=== PATIENT | male | born 1975 | race Caucasian/White ===

== ENCOUNTER 2017-08-27 10:01 | Emergency (ER) | payer MEDICAID, SELFPAY ==
[2017-08-27 10:02] VITALS: BP 154/103; PULSE 83; RESP 16; TEMP 36.5; O2SAT 96; BMI 27.8
--- NOTE | 2017-08-27 10:19 | ED.VISSUMM ---
- ER Visit Summary Date of Service: 08/27/17 Chief Complaint: Rash History of Present Illness: The patient is a 42 M who states that less than 48 hours ago he began to have a itchy red rash on his anterior shoulder. He states he is concerned about shingles. Physical Examination: Afebrile vital signs are stable There is a rash in the anterior shoulder that is a red base raised with central clear blisters. There are approximately 7 of these in close proximity. Emergency Department Course and Treatment: Patient will be placed on acyclovir and prednisone. Follow-up as needed return if worsening. Impression: 1. Shingles This note was generated with [employer] dictation software. It may contain incorrect words, spelling, and punctuation that were not noted in review of the chart prior to signing ED Disposition - Plan for ED Patient: Disposition: Home or Assisted Living Chief Complaint: Rash Instructions: ED Shingles Prescriptions: Acyclovir 800 mg PO 5X/DAY #35 tab Prednisone [Deltasone] 60 mg PO DAILY #15 tab Referrals: Care Physician,No Primary [Primary Care Provider] - Additional Instructions: Follow-up with your doctor as needed
--- NOTE | 2017-08-27 10:22 | ED.DCSUM_ITS ---
- ER Visit Summary Date of Service: 08/27/17 Chief Complaint: Rash History of Present Illness: The patient is a 42 M who states that less than 48 hours ago he began to have a itchy red rash on his anterior shoulder. He states he is concerned about shingles. Physical Examination: Afebrile vital signs are stable There is a rash in the anterior shoulder that is a red base raised with central clear blisters. There are approximately 7 of these in close proximity. Emergency Department Course and Treatment: Patient will be placed on acyclovir and prednisone. Follow-up as needed return if worsening. Impression: 1. Shingles This note was generated with [employer] dictation software. It may contain incorrect words, spelling, and punctuation that were not noted in review of the chart prior to signing ED Disposition - Plan for ED Patient: Disposition: Home or Assisted Living Chief Complaint: Rash Instructions: ED Shingles Prescriptions: Acyclovir 800 mg PO 5X/DAY #35 tab Prednisone [Deltasone] 60 mg PO DAILY #15 tab Referrals: Care Physician,No Primary [Primary Care Provider] - Additional Instructions: Follow-up with your doctor as needed
[2017-08-27 10:30] VITALS: BP 134/94; PULSE 67
== END 2017-08-27 10:45 | disposition home or self-care (01) ==
PROVIDERS: Emergency Provider Emergency Medicine; Family Provider Family Medicine; PCP Family Medicine
DX: B02.9 Zoster without complications (principal)
CPT/HCPCS: 99282

== ENCOUNTER 2018-08-12 12:38 | Emergency (ER) | payer MEDICAID, SELFPAY ==
[2018-08-12 12:38] VITALS: BP 138/92; PULSE 69; RESP 17; TEMP 37.1; O2SAT 96; BMI 27.6
--- NOTE | 2018-08-12 13:26 | CT_ITS ---
STUDY: CT ABDOMEN AND PELVIS WITH CONTRAST REASON FOR EXAM: Male, 43 years old. Diffuse abdominal pain with rectal bleeding RADIATION DOSAGE (If Supplied By Facility): CTDIvol = ( 16.47 ) mGy, DLP = ( 1275.89 ) mGycm TECHNIQUE: Transaxial images were obtained from the dome of the diaphragm to the symphysis pubis with oral contrast. 100 mL Isovue-300 was administered. Sagittal and coronal images were reconstructed. Individualized dose optimization techniques were used for this CT. COMPARISON: None. FINDINGS: The visualized lung bases are unremarkable. The visualized portions of the heart are within normal limits. Normal liver. There are surgical clips in the gallbladder fossa/upper abdomen consistent with a prior cholecystectomy. Normal spleen. Normal pancreas. Normal bilateral adrenal glands. Normal right kidney. Normal left kidney. Normal visualized stomach. Normal small intestine. There are multiple colonic diverticula consistent with diverticulosis. The appendix is visualized and appears normal. Normal abdominal aorta. Normal inferior vena cava. Normal retroperitoneum. Normal urinary bladder. There is a right-sided inguinal hernia containing adipose tissue. Normal osseous structures. CT/Abdomen/Pelvis WITH Contrast IMPRESSION: 1. No acute inflammatory process or bowel obstruction. 2. Cholecystectomy. 3. Small right inguinal fat-containing hernia. 4. Diverticulosis without diverticulitis. Electronically Signed: Phi He MD at 15:27 EST , Service support ,
[2018-08-12 14:09] LABS: Absolute Lymphocyte Count 1.79 X10^3/ul (0.83-4.51); Absolute Neutrophil Count 1.9 X10^3/uL (2.0-7.7); Basophil# 0.03 X10^3/uL; Basophil% 0.7 % (0-1); Eosinophils% 2.3 % (0-5); Hematocrit 40.3 % (40-54); Lymphocyte # 1.79 X10^3/ul (4.0); Lymphocyte % 41.1 % (19-41); Mean Corp Hgb Conc 34.7 g/gl (32-36); Mean Corpuscular Hgb 31.3 pg (27.0-32.0); Mean Corpuscular Volume 90.2 fL (80-94); Mean Platelet Vol. 12.2 fl (6.2-12.0); Monocyte# 0.49 X10^3/uL; Monocyte% 11.3 % (0-10); Neutrophil # 1.94 X10^3/uL (2.7-7.7); Neutrophil % 44.6 % (47-70); POSITIVE COUNT NO; POSITIVE DIFFERENTIAL NO; POSITIVE MORPHOLOGY NO; Platelet Count 189 K/mm3 (150-450); RBC Distribution Width CV 12.4 % (11.6-14.6); RBC Distribution Width SD 40.2 fl (35.1-43.9); Red Blood Count 4.47 M/mm3 (4.6-6.2); White Blood Count 4.4 K/mm3 (4.4-11.0)
[2018-08-12 14:18] LABS: AST(SGOT) 35 U/L (15-37); Alanine Aminotransfer ALT/SGPT 46 U/L (16-61); Albumin, Serum 3.8 g/dL (3.2-5.0); Alkaline Phosphatase 33 U/L (45-117); Anion Gap 7 (5-15); BUN 13 mg/dL (7-18); BUN/Creat Ratio 10.5 RATIO (10-20); Calcium,Total 8.5 mg/dL (8.5-10.1); Chloride 109 mmol/L (98-107); Creatinine, Serum 1.24 mg/dL (0.70-1.30); EST Glomerular Filtration Rate 68 mL/min (>60); Est Glom Filt Rate - Afr Amer 82 mL/min (>60); Estimated Creatinine Clearance 96.25 ml/min; Globulin 3.7 g/dL (2.2-4.2); Glucose 94 mg/dL (74-106); Lipase 150 U/L (73-393); Potassium 4.1 mmol/L (3.5-5.1); Protein, Total 7.5 g/dL (6.4-8.2); Sodium Level 138 mmol/L (136-145)
[2018-08-12 15:27] VITALS: BP 134/92; PULSE 66; RESP 16; O2SAT 95
--- NOTE | 2018-08-12 15:42 | ED.VISSUMM ---
- ER Visit Summary Date of Service: 08/12/18 Chief Complaint: Rectal bleeding History of Present Illness: The patient is a 43 M who states that yesterday he had 2 bowel movements each 1 had bright red blood on the toilet paper and around the brown stool. He states the stool was formed. Today he had blood only on the toilet paper, and formed brown stool, and some abdominal discomfort that he did not know about until his doctor pushed on the middle aspect of his abdomen. He tells me that his doctor did a rectal exam and there is bright red blood on the glove. He was advised to come to the emergency department. This is never happened to him before. He states that a lot of times he does have diarrhea. He has not had any syncope. He is never had colonoscopy. Physical Examination: Afebrile vital signs are stable Gen: Well-nourished well-developed Head: Normocephalic atraumatic Eyes: Perrl EOMI ENT: TMs clear no rhinorrhea moist mucous membranes Neck: Supple no lymphadenopathy no JVD nontender CVS: Regular rate rhythm no murmurs normal S1-S2 Respiratory: No distress clear to auscultation bilaterally chest nontender Abdomen: Soft nontender nondistended normal bowel sounds no masses : Rectal deferred as already performed by primary care physician and was documented Back: Nontender Extremity: Nontender no edema Skin: Normal color no rash Neuro: alert orientated ?3 CN II-XII intact normal strength sensation reflexes gait cerebellar Psych: Normal affect normal mood Test Results: White count is normal hemoglobin stable. CMP normal. CT down pelvis demonstrated no colitis or active diverticulitis. There was some diverticular changes. Emergency Department Course and Treatment: Patient's hemoglobin is stable. He is hemodynamically stable. He has had no further bleeding here in the department. At this point is most likely either a diverticular bleed AVM or internal hemorrhoids. He was advised to follow-up with his primary care physician early next week. He is to return if his bleeding worsens. He will need a colonoscopy. Impression: 1. Stable lower GI bleed This note was generated with [employer] dictation software. It may contain incorrect words, spelling, and punctuation that were not noted in review of the chart prior to signing ED Disposition - Plan for ED Patient: Disposition: Home or Assisted Living Instructions: When You Have Gastrointestinal (GI) Bleeding Referrals: Myles Storm MD [Primary Care Provider] - (call on tuesday to arrange follow up) Additional Instructions: If bleeding becomes worse please return to the emergency department. He will need to get a colonoscopy.
[2018-08-12 16:00] VITALS: BP 128/89; PULSE 62; RESP 16; O2SAT 99
== END 2018-08-12 16:01 | disposition home or self-care (01) ==
PROVIDERS: Emergency Provider Emergency Medicine; Family Provider Family Medicine; PCP Family Medicine
DX: K62.5 Hemorrhage of anus and rectum (principal)
CPT/HCPCS: 74177; 80053; 83690; 85025; 99285; Q9967; A4216

== ENCOUNTER 2019-07-04 19:39 | Emergency (ER) | payer MEDICAID, SELFPAY ==
[2019-07-04 19:40] VITALS: BP 151/88; PULSE 90; RESP 18; TEMP 36.7; O2SAT 96; BMI 30.2
--- NOTE | 2019-07-04 21:37 | ED.VISSUMM ---
- ER Visit Summary Date of Service: 07/04/19 Chief Complaint: Dental pain History of Present Illness: The patient is a 44 M who presents with right upper dental pain that is been getting worse over the past week. Patient states his dentist recently started him on clindamycin and told him to take 600 mg of ibuprofen and 375 mg of Tylenol. Patient states he has been taking this with minimal relief. Patient states he has an appoint with his dentist tomorrow. Patient denies any difficulty breathing or difficulty swallowing. Patient denies any fevers or chills. Patient describes his pain is sharp. Patient states the pain is over the right upper molars. Patient admits to some swelling of his jaw and face. Patient admits to a right-sided headache as well. Physical Examination: Vital signs are stable. Patient is afebrile. Patient is in no acute distress. Oral mucosa is pink and moist. There are multiple dental caries in almost every tooth. There is some gingival edema over the right upper molars. Neck is supple. Trachea is midline. There is no JVD. Heart was regular rate and rhythm. Lungs are clear and equal bilaterally. Abdomen is soft. Bowel sounds are normal. There is no tenderness. Cranial nerves II through XII are intact. There are no focal motor or sensory deficits. Emergency Department Course and Treatment: Patient was given a dose of [place] here. Patient was instructed to continue his antibiotic as prescribed. Patient was instructed to follow-up with his dentist tomorrow as scheduled. Patient understood and was agreeable with the plan. All questions were answered. Disposition: Discharge home Impression: Infected dental caries This note was generated with [employer]estone dictation software. It may contain incorrect words, spelling, and punctuation that were not noted in review of the chart prior to signing ED Disposition - Plan for ED Patient: Disposition: Home or Assisted Living Diagnosis: Infected dental caries Instructions: Dental Cavity Referrals: Myles Storm MD [Primary Care Provider] - Dentist,Your [STAFF PHYSICIAN] - Keep Irma appointment
[2019-07-04] MEDS: HYDROcodone Bitartrate/Apap 5/325 Tablet PO (22:00)
== END 2019-07-04 22:02 | disposition home or self-care (01) ==
PROVIDERS: Emergency Provider Emergency Medicine; PCP Family Medicine
DX: K04.7 Periapical abscess without sinus (principal); K02.9 Dental caries, unspecified; R51 Headache
CPT/HCPCS: 99283

== ENCOUNTER 2021-09-30 20:43 | Emergency (ER) | payer MEDICAID, SELFPAY ==
[2021-09-30 20:44] VITALS: BP 139/103; PULSE 84; RESP 15; TEMP 36.5; O2SAT 98; BMI 27.8
--- NOTE | 2021-09-30 20:57 | CT_ITS ---
STUDY: CT ABDOMEN AND PELVIS WITHOUT CONTRAST REASON FOR EXAM: Male, 46 years old. Kidney Stone RADIATION DOSAGE (If Supplied By Facility): CTDIvol = ( 14.74 ) mGy, DLP = ( 828.88 ) mGycm TECHNIQUE: Transaxial images were obtained from the dome of the diaphragm to the symphysis pubis without oral contrast, and without intravenous contrast. Sagittal and coronal images were reconstructed. Individualized dose optimization techniques were used for this CT. COMPARISON: CT abdomen pelvis 08/12/2018. FINDINGS: LOWER CHEST: Small bilateral pleural effusions. LIVER: Fatty infiltration. GALLBLADDER AND BILIARY TREE: Gallbladder surgically absent. PANCREAS: Grossly unremarkable. SPLEEN: Grossly unremarkable. ADRENAL GLANDS: Grossly unremarkable. KIDNEYS AND URETERS: No calculi demonstrated. No hydronephrosis. PERITONEUM: No free air. No free fluid. BOWEL: Scattered diverticula in the colon. No bowel obstruction. APPENDIX: Visualized and unremarkable. No evidence of acute appendicitis. VESSELS/RETROPERITONEUM: Abdominal aorta is normal caliber. A few prominent retroperitoneal lymph nodes largest node aortocaval measures 1.8 x 1.2 cm is not significantly changed, with smaller adjacent nodule is slightly larger. REPRODUCTIVE ORGANS: Grossly unremarkable URINARY BLADDER: Minimally distended. Prominent wall. ABDOMINAL WALL: Small bilateral inguinal hernias containing only fat, no bowel. BONES: No acute abnormalities. CT/Abdomen/Pelvis without Cont IMPRESSION: Prominent urinary bladder wall likely nondistention, correlate for cystitis. No urolithiasis or hydronephrosis. Colonic diverticulosis without evidence of acute diverticulitis. Small bilateral pleural effusions. No infiltrates. Retroperitoneal adenopathy of uncertain etiology slightly increased compared to prior CT. Consider follow-up imaging CT 2-3 months to ensure stability. Electronically Signed: Marivel Nye MD at 22:32 EDT ,
--- NOTE | 2021-09-30 21:01 | EX.ED.DYSGE1 ---
HPI History of Present Illness Chief Complaint: Abd Pain Informant: patient Narrative Narrative: Waxing waning right flank pain for the past 3 days. Symptoms worsen with movement. Denies injuries or any heavy lifting prior. Denies radicular symptoms. No nausea or vomiting. No diarrhea. No urinary symptoms. Has not taken any medications. States he played basketball yesterday to try to get his mind off of it. Today symptoms worsen. Denies history of gastric ulcers or kidney injury. Denies fevers. Denies rash. History of cholecystectomy in 2004. States 2006 had a collapsed lung with a chest tube. Denies dyspnea. Denies any pain down the legs. Prior similar symptoms: No PFSH PFSH Home Medications acetaminophen 500 mg PO Q4H PRN PRN 07/04/19 [History Last Taken Unknown] ibuprofen 600 mg PO 4X/DAY PRN #20 tab 09/30/21 [Rx Last Taken Unknown] Allergy/AdvReac Type Severity Reaction Status Date / Time Penicillins Allergy Rash Verified 09/30/21 20:47 Social History Smoking Status: Never smoker ROS ROS ED Constitutional Constitutional ED: Denies chills, fever(s) or sweats Eyes Eyes: Denies change in vision ENT ENT ED: Denies dysphagia or sore throat Cardiovascular Cardiovascular: Denies chest pain, leg edema, palpitations or racing heartbeat Respiratory/Chest Respiratory/Chest: Denies cough, dyspnea or dyspnea on exertion Gastrointestinal Gastrointestinal: Denies abdominal pain, diarrhea, nausea or vomiting Genitourinary Genitourinary ED: Denies dysuria, hematuria or urinary frequency Musculoskeletal Musculoskeletal: Reports back pain; Denies extremity pain or neck pain Integumentary Denies rash or wounds Neurologic Neurologic: Denies headache(s), paresthesias or weakness EXAM Physical Exam Const Vital Signs: 09/30/21 20:44 09/30/21 23:08 Temperature 97.7 F L Temperature Source Temporal Pulse Rate 84 59 L Respiratory Rate 15 18 Blood Pressure 139/103 H 143/101 H Blood Pressure Mean 115 Pulse Ox 98 98 Oxygen Delivery Method Room Air Positive well nourished and well developed General Appearance ED: well developed and NAD HEENT Reports moist mucous membranes normocephalic and atraumatic Eyes PERRL, EOMs intact bilaterally and conjunctivae normal General Eye ED: Yes normal appearance of both eyes Neck no lymphadenopathy and supple General: Negative for tenderness Chest Wall Chest: Negative for tenderness Resp normal respiratory effort and normal air movement Effort and Inspection: symmetric chest movement; Negative for respiratory distress Cardio regular rate, regular rhythm and no murmurs Peripheral Pulses: pulses 2+ throughout GI normal to inspection, nondistended, normoactive bowel sounds and non-tender Palpation: Negative for guarding or rebound tenderness present Back/Spine no CVA tenderness and no thoracic nor lumbar tenderness Back/Spine Narrative: No rash on the back. Extremity normal to inspection General Extremety ED: Negative for edema or tenderness General Extremity: Negative for edema Neuro oriented x3 and no sensory deficits noted Sensorium / Orientation: awake and alert Skin no rashes or lesions noted and no wounds MDM MDM MDM Narrative Medical decision making narrative: Patient nontraumatic flank pain worse with movement. States persistent. He denies trauma. Renal stone protocol initiated labs are stable urine negative CT scan shows no acute process. Decompressed bladder. He was agreeable to Toradol in the ED is given a reevaluation symptoms were improving. We will continue NSAIDs. He will monitor for any rashes for concerns of shingles. He will follow-up with his PCP. All questions were answered. Lab Data Attestation: I reviewed the patient's lab results. Labs: Laboratory Results - last 24 hr 09/30/21 09/30/21 09/30/21 20:55 20:55 21:15 WBC 6.3 RBC 4.80 Hgb 15.4 Hct 42.4 MCV 88.3 MCH 32.1 H MCHC 36.3 H RDW Std Deviation 38.6 RDW Coeff of Roseanne 11.9 Plt Count 183 MPV 12.1 H Immature Gran % (Auto) 0.200 Neut % (Auto) 53.2 Lymph % (Auto) 34.4 Lee % (Auto) 8.7 Eos % (Auto) 3.0 Baso % (Auto) 0.5 Absolute Neuts (auto) 3.4 Absolute Lymphs (auto) 2.18 Nucleated RBC % 0 Sodium 135 L Potassium 3.9 Chloride 102 Carbon Dioxide 25.0 Anion Gap 8 BUN 8 Creatinine 1.08 Estim Creat Clear Calc 101.48 Est GFR (MDRD) Af Amer 95 Est GFR (MDRD) Non-Af 79 BUN/Creatinine Ratio 7.4 L Glucose 99 Calcium 8.9 Urine Color Yellow Urine Clarity Clear Urine pH 6.5 Ur Specific [place] 1.005 Urine Protein Negative Urine Glucose (UA) Normal Urine Ketones Negative Urine Occult Blood Negative Urine Nitrite Negative Urine Bilirubin Negative Urine Urobilinogen Normal Ur Leukocyte Esterase Negative Urine RBC 0 SEEN Urine WBC 0 SEEN Ur Squamous Epith Cells 0 SEEN Urine Bacteria 0 SEEN Urine Mucus 0 SEEN Radiography Diagnostic Testing: Clinical Impression(s) from Imaging Studies Abdomen/Pelvis CT 09/30/21 20:57 IMPRESSION: Prominent urinary bladder wall likely nondistention, correlate for cystitis. No urolithiasis or hydronephrosis. Colonic diverticulosis without evidence of acute diverticulitis. Small bilateral pleural effusions. No infiltrates. Retroperitoneal adenopathy of uncertain etiology slightly increased compared to prior CT. Consider follow-up imaging CT 2-3 months to ensure stability. Electronically Signed: Marivel Nye MD at 22:32 EDT Reading Location ID and State: [address] [place] [address] Tel , Service support , Discharge Plan Triage Chief Complaint: Abd Pain ED Provider: Vladimir Barrientos Dx/Rx/DC Orders Clinical Impression: Right flank pain, Acute lumbar myofascial strain Instructions: ED Back Sprain/Strain, ED Flank Pain, Uncertain Cause Prescriptions: New ibuprofen 600 MG tablet 600 mg PO 4X/DAY PRN (Reason: Pain Or Fever) Qty: 20 RF: 0 Discontinued ibuprofen 200 MG tablet 600 mg PO Q6H PRN (Reason: Pain Or Fever) RF: 0 No Action acetaminophen 500 MG tablet 500 mg PO Q4H PRN PRN (Reason: Pain Or Fever) RF: 0 Primary Care Provider: Myles Storm Referrals: Myles Storm MD [Primary Care Provider] - 3-5 Days if not improving Activity Restrictions/Additional Instructions: Flank CT negative for any acute process labs and urine is normal. Take ibuprofen as prescribed. Monitor for any rashes. Follow-up with your doctor for reevaluation. Disposition Disposition: Home, Self Care Discharge Date/Time: 09/30/21 23:13
[2021-09-30] MEDS: Ketorolac 15 MG/ML Vial IV (21:03)
[2021-09-30] MEDS: 0.9% Normal Saline 1,000 ML 250 ML IV (21:06)
[2021-09-30 21:10] LABS: Absolute Lymphocyte Count 2.18 X10^3/uL (0.83-4.51); Absolute Neutrophil Count 3.4 X10^3/uL (2.0-7.7); Basophil# 0.03 X10^3/uL; Basophil% 0.5 % (0-1); Eosinophil# 0.19 X10^3/uL; Hematocrit 42.4 % (40-54); Hemoglobin 15.4 g/dL (13.0-16.5); Lymphocyte # 2.18 X10^3/ul (0.83-4.51); Lymphocyte % 34.4 % (19-41); Mean Corp Hgb Conc 36.3 g/dL (32-36); Mean Corpuscular Hgb 32.1 pg (27.0-32.0); Mean Corpuscular Volume 88.3 fL (80-94); Mean Platelet Vol. 12.1 fl (6.2-12.0); Monocyte# 0.55 X10^3/uL; Monocyte% 8.7 % (0-10); NRBC Flagged by Analyzer 0 % (0-5); Neutrophil # 3.38 X10^3/uL (2.7-7.7); Neutrophil % 53.2 % (47-70); Platelet Count 183 K/mm3 (150-450); RBC Distribution Width CV 11.9 % (11.6-14.6); RBC Distribution Width SD 38.6 fl (35.1-43.9); White Blood Count 6.3 K/mm3 (4.4-11.0)
[2021-09-30 21:24] LABS: Bacteria 0 SEEN /hpf (None Seen); Mucous, Urine 0 SEEN /hpf (<or=2+); Red Blood Cells-Urine 0 SEEN /hpf (0-5); Squamous Epithelial Cells - UA 0 SEEN /hpf (0-5); White Blood Cells 0 SEEN /hpf (0-5)
[2021-09-30 21:25] LABS: Anion Gap 8 (5-15); BUN 8 mg/dL (7-18); BUN/Creat Ratio 7.4 RATIO (10-20); Calcium,Total 8.9 mg/dL (8.5-10.1); Chloride 102 mmol/L (98-107); Creatinine, Serum 1.08 mg/dL (0.70-1.30); EST Glomerular Filtration Rate 79 mL/min (>60); Est Glom Filt Rate - Afr Amer 95 mL/min (>60); Estimated Creatinine Clearance 101.48 ml/min; Glucose 99 mg/dL (74-106); Potassium 3.9 mmol/L (3.5-5.1); Sodium Level 135 mmol/L (136-145)
[2021-09-30 22:09] LABS: Color, Urine Yellow (Yellow); Glucose, Dipstick Normal (Normal); Ketone-Dipstick Negative (Negative); Leukocyte Esterase-Dipstick Negative /ul (Negative); Nitrite-Dipstick Negative (Negative); Occult Blood-Urine Negative /ul (Negative); Protein-Dipstick Negative (Negative); Specific Gravity, Urine 1.005 (1.002-1.030); Urine Bilirubin Dipstick Negative (Negative); Urine Clarity Clear (Clear); Urine Urobilinogen Normal (Normal); Urine pH 6.5 (5.0 - 8.0)
[2021-09-30 23:08] VITALS: BP 143/101; PULSE 59; RESP 18; O2SAT 98
--- NOTE | 2021-09-30 23:11 | NURSING ---
reviewed discharge instructions with pt and family member. instructed pt to wait 6 hours to take ibuprofen do to receiving Toradol in ED. pt stated understanding.
== END 2021-09-30 23:13 | disposition home or self-care (01) ==
PROVIDERS: Emergency Provider Emergency Medicine; PCP Family Medicine; Visit Provider Emergency Medicine
DX: S39.012A Strain of muscle, fascia and tendon of lower back, initial encounter (principal); R10.9 Unspecified abdominal pain; X58.XXXA Exposure to other specified factors, initial encounter
CPT/HCPCS: 74176; 80048; 81001; 85025; 96374; 99283; J7030; A4216

== ENCOUNTER 2023-05-31 18:37 | Emergency (ER) | payer MEDICAID, SELFPAY ==
[2023-05-31 18:40] VITALS: BP 133/99; PULSE 76; RESP 18; TEMP 36.9; O2SAT 96; BMI 27.7
--- NOTE | 2023-05-31 18:58 | EX.ED.DYSGE1 ---
HPI <TAJ Rodriguez - Last Filed: 05/31/23 20:20> History of Present Illness Chief Complaint: Abd Pain Narrative Narrative: Patient is a 48-year-old male with no significant medical history presents to the emergency department with complaints of rectal bleeding, lower abdominal pain. Patient dates he started having lower abdominal pain today, he had 1 bowel movement that he states was bloody, with bright red blood in the toilet paper. He has had 2 colonoscopies in the past with no abnormalities. He denies using a lot of NSAIDs recently, [place] any fever or chills. Patient dates it feels full in his lower abdomen. He sent a picture to his physician and his physician told him to come to the emergency department. Patient denies any chest pain, dizziness, nausea or vomiting. PFSH <TAJ Rodriguez - Last Filed: 05/31/23 20:20> PFSH Home Medications acetaminophen 500 mg tablet 500 mg PO Q4H PRN PRN Pain Or Fever 07/04/19 [History Last Taken Unknown] ibuprofen 600 mg tablet 600 mg PO 4X/DAY PRN Pain Or Fever #20 tabs 09/30/21 [Rx Last Taken Unknown] cefdinir 300 mg capsule 300 mg PO BID #20 caps 05/31/23 [Rx Last Taken Unknown] colestipol 1 gram tablet 1 g PO BID 05/31/23 [History Last Taken Unknown] cyclobenzaprine 10 mg tablet 10 mg PO TID PRN 05/31/23 [History Last Taken Unknown] metronidazole 500 mg tablet 500 mg PO TID #30 tabs 05/31/23 [Rx Last Taken Unknown] Allergy/AdvReac Type Severity Reaction Status Date / Time Penicillins Allergy Rash Verified 05/31/23 18:40 Social History Smoking Status: Never smoker ROS <TAJ Rodriguez - Last Filed: 05/31/23 20:20> ROS ED ROS Narrative Constitutional: Negative for fever, chills, weight loss, weakness Eyes: Negative for vision loss, vision change, double vision ENT: Negative for any sore throat, ear pain, congestion Cardiovascular: Negative for any chest pain, tightness, palpitations Respiratory: Negative for any cough, sputum production, hemoptysis, dyspnea, dyspnea on exertion, orthopnea Gastrointestinal: Negative for any nausea, vomiting, diarrhea, constipation, blood in vomit. Positive for blood in stool, abdominal pain : Negative for any urinary frequency, dysuria, retention, blood in urine Muscle skeletal: Negative for any myalgias, arthralgias, neck pain, back pain Neurological: Negative for any headache, syncope, paresthesias, dizziness Skin: Negative for any rashes, lumps, itching, abrasions, lacerations Psychiatric: Negative for any depression, anxiety, stress, suicidal ideation, homicidal ideation Hematologic: Negative for any easy bruising, excessive bruising, easy bleeding Allergies: Negative for any eczema, hives, rash EXAM <TAJ Rodriguez - Last Filed: 05/31/23 20:20> Physical Exam Narrative Exam Narrative: Vital signs reviewed. HEET: Head normocephalic atraumatic, TMs clear bilaterally. Posterior pharynx is clear, moist mucous membranes. Nares clear bilaterally. Neck: Supple with no lymphadenopathy or tenderness. No signs of meningismus. Cardiac: Regular rate and rhythm no murmurs gallops or rubs, equal peripheral pulses bilaterally. Respiratory: Lungs clear to auscultation bilaterally. No chest tenderness. Abdomen: Soft, , nondistended. No abdominal bruit or pulsatile masses. No hepatosplenomegaly. Tenderness to the lower abdomen, right and left. No peritoneal signs Extremities: No peripheral edema, no signs of gross trauma or deformity. Active full range of motion of all extremities. Neuro: Cranial nerves II through XII intact, no focal neurological deficits. Skin: Clean dry and intact with no rash, purpura, petechiae, vesicles or pustules. Backs/flank: No CVA tenderness, no midline spinal tenderness, no deformity. Psych: Normal mood and affect. No SI, HI or acute psychosis. Rectal: Rectal exam was completed, with female nurse materials planner/production planner Radha. There was some darker blood around the anus however there is no external hemorrhoid, there is no mass. Minimal stool in rectal vault. Const Vital Signs: 05/31/23 18:40 05/31/23 20:53 Temperature 98.5 F Temperature Source Temporal Pulse Rate 76 74 Respiratory Rate 18 16 Blood Pressure 133/99 H 132/71 H Blood Pressure Mean 110 91 Pulse Ox 96 97 Oxygen Delivery Method Room Air Positive well nourished and well developed General Appearance ED: well developed <Dr. Vladimir Barrientos DO - Last Filed: 05/31/23 22:15> Physical Exam Const Vital Signs: 05/31/23 18:40 05/31/23 20:53 Temperature 98.5 F Temperature Source Temporal Pulse Rate 76 74 Respiratory Rate 18 16 Blood Pressure 133/99 H 132/71 H Blood Pressure Mean 110 91 Pulse Ox 96 97 Oxygen Delivery Method Room Air MDM <TAJ Rodriguez - Last Filed: 05/31/23 20:20> MDM Lab Data Labs: Laboratory Results - last 24 hr 05/31/23 19:19 WBC 5.9 RBC 4.79 Hgb 15.2 Hct 44.0 MCV 91.9 MCH 31.7 MCHC 34.5 RDW Std Deviation 43.8 RDW Coeff of Roseanne 13.2 Plt Count 214 MPV 10.8 Immature Gran % (Auto) 0.200 Neut % (Auto) 48.5 Lymph % (Auto) 37.3 Maury % (Auto) 10.8 H Eos % (Auto) 2.2 Baso % (Auto) 1.0 Absolute Neuts (auto) 2.9 Absolute Lymphs (auto) 2.21 Nucleated RBC % 0 Sodium 138 Potassium 3.7 Chloride 106 Carbon Dioxide 28.0 Anion Gap 4 L BUN 8 Creatinine 1.08 Estim Creat Clear Calc 99.37 Est GFR (MDRD) Af Amer 95 Est GFR (MDRD) Non-Af 78 BUN/Creatinine Ratio 7.4 L Glucose 96 Calcium 9.3 Total Bilirubin 1.50 H AST 16 ALT 24 Alkaline Phosphatase 67 Total Protein 8.0 Albumin 3.6 Globulin 4.4 H Albumin/Globulin Ratio 0.8 L Lipase 36 Radiography Diagnostic Testing: Clinical Impression(s) from Imaging Studies Abdomen/Pelvis CT 05/31/23 19:31 IMPRESSION: Findings consistent with distal colitis. No acute appendicitis or bowel obstruction. Status post cholecystectomy, otherwise unremarkable abdominal viscera. Electronically Signed: Shae Tamez MD at 20:02 EST , Treatment and Re-Evaluation :: Patient appears generally well, patient appears nontoxic, vital signs are stable. Presenting to the emerged part with lower abdominal pain, blood in stool. Patient differential diagnosis includes diverticulitis, colitis, lower GI bleed. Patient will receive a full abdominal workup including CBC to ensure there is no anemia, leukocytosis. Patient will receive a BMP to check for any Orchard abnormalities, I will send a stool occult. Patient received a CT scan of the abdomen pelvis. All radiologic examinations were read, reviewed by the emergency department attending. From these reads, a plan of care will be put in place. Patient's CBC was unremarkable, chemistries were unremarkable. Lipase was negative. Patient's stool occult was positive. Patient CT scan of the abdomen pelvis shows that the findings were consistent with distal colitis. No acute appendicitis or bowel obstruction. This unexplained the patient's symptoms while some blood in stool. At this time, patient be placed on cefdinir secondary to his allergy to penicillin, he will also be placed on Flagyl. He does not drink alcohol. Patient was instructed to follow-up with his GI specialist, he is instructed return for any worsening symptoms. All questions answered, stable for discharge. <Dr. Vladimir Barrientos, DO - Last Filed: 05/31/23 22:15> [facility] Lab Data Attestation: I reviewed the patient's lab results. Labs: Laboratory Results - last 24 hr 05/31/23 19:19 WBC 5.9 RBC 4.79 Hgb 15.2 Hct 44.0 MCV 91.9 MCH 31.7 MCHC 34.5 RDW Std Deviation 43.8 RDW Coeff of Roseanne 13.2 Plt Count 214 MPV 10.8 Immature Gran % (Auto) 0.200 Neut % (Auto) 48.5 Lymph % (Auto) 37.3 Maury % (Auto) 10.8 H Eos % (Auto) 2.2 Baso % (Auto) 1.0 Absolute Neuts (auto) 2.9 Absolute Lymphs (auto) 2.21 Nucleated RBC % 0 Sodium 138 Potassium 3.7 Chloride 106 Carbon Dioxide 28.0 Anion Gap 4 L BUN 8 Creatinine 1.08 Estim Creat Clear Calc 99.37 Est GFR (MDRD) Af Amer 95 Est GFR (MDRD) Non-Af 78 BUN/Creatinine Ratio 7.4 L Glucose 96 Calcium 9.3 Total Bilirubin 1.50 H AST 16 ALT 24 Alkaline Phosphatase 67 Total Protein 8.0 Albumin 3.6 Globulin 4.4 H Albumin/Globulin Ratio 0.8 L Lipase 36 Radiography Diagnostic Testing: Clinical Impression(s) from Imaging Studies Abdomen/Pelvis CT 05/31/23 19:31 IMPRESSION: Findings consistent with distal colitis. No acute appendicitis or bowel obstruction. Status post cholecystectomy, otherwise unremarkable abdominal viscera. Electronically Signed: Shae Tamez MD at 20:02 EST , Treatment and Re-Evaluation :: Patient appears generally well, patient appears nontoxic, vital signs are stable. Presenting to the emerged part with lower abdominal pain, blood in stool. Patient differential diagnosis includes diverticulitis, colitis, lower GI bleed. Patient will receive a full abdominal workup including CBC to ensure there is no anemia, leukocytosis. Patient will receive a BMP to check for any Orchard abnormalities, I will send a stool occult. Patient received a CT scan of the abdomen pelvis. All radiologic examinations were read, reviewed by the emergency department attending. From these reads, a plan of care will be put in place. Patient's CBC was unremarkable, chemistries were unremarkable. Lipase was negative. Patient's stool occult was positive. Patient CT scan of the abdomen pelvis shows that the findings were consistent with distal colitis. No acute appendicitis or bowel obstruction. This unexplained the patient's symptoms while some blood in stool. At this time, patient be placed on cefdinir secondary to his allergy to penicillin, he will also be placed on Flagyl. He does not drink alcohol. Patient was instructed to follow-up with his GI specialist, he is instructed return for any worsening symptoms. All questions answered, stable for discharge. Attending note: Patient seen and evaluated with products mechanical design engineer. I perform my own [id number] evaluation. I agree with the plan of work-up. Patient presenting pain lower abdomen starting this afternoon. No fevers or chills. No vomiting or diarrhea. Exam minimal tenderness deep palpation left lower quadrant there is no guarding or rebound. Nontoxic. Workup labs normal abdominal labs CT scan positive for distal colitis. Hemoccult was positive. Hemoglobin stable. He is not on any blood thinners. He started on antibiotics for his colitis. Follow-up given with GI. Discharge Plan Triage Chief Complaint: Abd Pain Other Complaint: GI Bleed ED Midlevel Provider: Stephon Florentino ED Provider: Vladimir Barrientos Dx/Rx/DC Orders Clinical Impression: Colitis, Abdominal pain Instructions: How the Colon Works, ED Gastritis (Adult) Prescriptions: New cefdinir 300 mg capsule 300 mg PO BID Qty: 20 0RF metronidazole 500 mg tablet 500 mg PO TID Qty: 30 0RF No Action acetaminophen 500 MG tablet 500 mg PO Q4H PRN PRN (Reason: Pain Or Fever) ibuprofen 600 MG tablet 600 mg PO 4X/DAY PRN (Reason: Pain Or Fever) Qty: 20 0RF colestipol 1 gram tablet 1 g PO BID cyclobenzaprine 10 mg tablet 10 mg PO TID PRN Patient Comments: take 0.5 to 1 tablet by mouth three times a day if needed for muscle spasm Primary Care Provider: Myles Storm Referrals: Myles Storm MD [Primary Care Provider] - Nabil Rossi DO [Med Staff - Active Staff] - Activity Restrictions/Additional Instructions: Please follow-up outpatient. Take antibiotics until finished. Disposition Disposition: Home, Self Care Discharge Date/Time: 05/31/23 21:11
[2023-05-31] MEDS: 0.9% Normal Saline (1000mL) 1,000 ML 1000 ML IV (19:16)
[2023-05-31 19:24] LABS: Absolute Lymphocyte Count 2.21 X10^3/uL (0.83-4.51); Absolute Neutrophil Count 2.9 X10^3/uL (2.0-7.7); Basophil# 0.06 X10^3/uL; Eosinophil# 0.13 X10^3/uL; Eosinophils% 2.2 % (0-5); Hemoglobin 15.2 g/dL (13.0-16.5); Lymphocyte # 2.21 X10^3/ul (0.83-4.51); Lymphocyte % 37.3 % (19-41); Mean Corp Hgb Conc 34.5 g/dL (32-36); Mean Corpuscular Hgb 31.7 pg (27.0-32.0); Mean Corpuscular Volume 91.9 fL (80-94); Mean Platelet Vol. 10.8 fl (6.2-12.0); Monocyte# 0.64 X10^3/uL; Monocyte% 10.8 % (0-10); NRBC Flagged by Analyzer 0 % (0-5); Neutrophil # 2.88 X10^3/uL (2.7-7.7); Neutrophil % 48.5 % (47-70); Platelet Count 214 K/mm3 (150-450); RBC Distribution Width CV 13.2 % (11.6-14.6); RBC Distribution Width SD 43.8 fl (35.1-43.9); Red Blood Count 4.79 M/mm3 (4.6-6.2); White Blood Count 5.9 K/mm3 (4.4-11.0)
--- NOTE | 2023-05-31 19:31 | CT_ITS ---
STUDY: CT ABDOMEN AND PELVIS WITH CONTRAST REASON FOR EXAM: Male, 48 years old. abdominal pain RADIATION DOSAGE (If Supplied By Facility): CTDIvol = ( 13.72 ) mGy, DLP = ( 1024.59 ) mGycm TECHNIQUE: Transaxial images were obtained from the dome of the diaphragm to the symphysis pubis without oral contrast. IV 100mL Isovue-370 was administered. Sagittal and coronal images were reconstructed. Individualized dose optimization techniques were used for this CT. COMPARISON: 09/30/2021. FINDINGS: The visualized lung bases are unremarkable. The visualized portions of the heart are within normal limits. Normal liver. There are surgical clips in the gallbladder fossa consistent with a prior cholecystectomy. Normal spleen. Normal pancreas. Normal bilateral adrenal glands. Normal right kidney. Normal left kidney. Normal visualized stomach. Normal small intestine. The descending colon is decompressed with mild thickening of the wall throughout the inferior aspect of the descending colon and sigmoid with minimal stranding of the surrounding fat concerning for distal colitis. The appendix is visualized and appears normal. Normal abdominal aorta. Normal inferior vena cava. Normal retroperitoneum. Normal urinary bladder. Small right-sided fat-containing inguinal hernia. There are diffuse degenerative changes of the visualized lumbar spine. CT/Abdomen/Pelvis W IV Cont ONLY IMPRESSION: Findings consistent with distal colitis. No acute appendicitis or bowel obstruction. Status post cholecystectomy, otherwise unremarkable abdominal viscera. Electronically Signed: Shae Tamez MD at 20:02 [facility] ,
[2023-05-31 19:40] LABS: ALB/GLOB Ratio 0.8 RATIO (0.9-2.4); AST(SGOT) 16 U/L (15-37); Alanine Aminotransfer ALT/SGPT 24 U/L (16-61); Albumin, Serum 3.6 g/dL (3.2-5.0); Alkaline Phosphatase 67 U/L (45-117); Anion Gap 4 (5-15); BUN 8 mg/dL (7-18); BUN/Creat Ratio 7.4 RATIO (10-20); Calcium,Total 9.3 mg/dL (8.5-10.1); Chloride 106 mmol/L (98-107); Creatinine, Serum 1.08 mg/dL (0.70-1.30); EST Glomerular Filtration Rate 78 mL/min (>60); Est Glom Filt Rate - Afr Amer 95 mL/min (>60); Estimated Creatinine Clearance 99.37 ml/min; Globulin 4.4 g/dL (2.2-4.2); Glucose 96 mg/dL (74-106); Lipase 36 U/L (13-75); Potassium 3.7 mmol/L (3.5-5.1); Sodium Level 138 mmol/L (136-145)
[2023-05-31] MEDS: metroNIDAZOLE 500 MG Tablet PO (20:24)
[2023-05-31] MEDS: Cefdinir 300 MG Capsule PO (20:42)
[2023-05-31 20:53] VITALS: BP 132/71; PULSE 74; RESP 16; O2SAT 97
--- NOTE | 2023-08-12 22:54 | ED.VIS.GI ---
HPI HPI - GI History of Present Illness Chief Complaint: Abd Pain Informant: patient Narrative Narrative: Delayed note, aram. Seen on 05/31/2023. 1 day history of abdominal pain 1 bright red blood per stool. No anticoagulants. No fevers. PFSH PFSH Home Medications acetaminophen 500 mg tablet 500 mg PO Q4H PRN PRN Pain Or Fever 07/04/19 [History Last Taken Unknown] ibuprofen 600 mg tablet 600 mg PO 4X/DAY PRN Pain Or Fever #20 tabs 09/30/21 [Rx Last Taken Unknown] cefdinir 300 mg capsule 300 mg PO BID #20 caps 05/31/23 [Rx Last Taken Unknown] colestipol 1 gram tablet 1 g PO BID 05/31/23 [History Last Taken Unknown] cyclobenzaprine 10 mg tablet 10 mg PO TID PRN 05/31/23 [History Last Taken Unknown] metronidazole 500 mg tablet 500 mg PO TID #30 tabs 05/31/23 [Rx Last Taken Unknown] Allergy/AdvReac Type Severity Reaction Status Date / Time Penicillins Allergy Rash Verified 05/31/23 18:40 Social History Smoking Status: Never smoker ROS ROS ED Constitutional Constitutional ED: Denies chills, fever(s) or sweats Eyes Eyes: Denies change in vision ENT ENT ED: Denies dysphagia or sore throat Cardiovascular Cardiovascular: Denies chest pain, leg edema, palpitations or racing heartbeat Respiratory/Chest Respiratory/Chest: Denies cough, dyspnea or dyspnea on exertion Gastrointestinal Gastrointestinal: Reports abdominal pain and other Details: Bright red blood per rectum ; Denies diarrhea, nausea or vomiting Genitourinary Genitourinary ED: Denies dysuria, hematuria or urinary frequency Musculoskeletal Musculoskeletal: Denies back pain, extremity pain or neck pain Integumentary Denies rash or wounds Neurologic Neurologic: Denies headache(s), paresthesias or weakness EXAM Physical Exam Const Positive well nourished and well developed General Appearance ED: well developed and NAD HEENT Reports moist mucous membranes normocephalic and atraumatic Eyes PERRL, EOMs intact bilaterally and conjunctivae normal General Eye ED: Yes normal appearance of both eyes Neck no lymphadenopathy and supple General: Negative for tenderness Chest Wall Chest: Negative for tenderness Resp normal respiratory effort and normal air movement Effort and Inspection: symmetric chest movement; Negative for respiratory distress Cardio regular rate, regular rhythm and no murmurs Peripheral Pulses: pulses 2+ throughout GI normal to inspection, nondistended, normoactive bowel sounds GI Narrative: Tender palpation left lower quadrant. Negative Soto's McBurney's tenderness. Palpation: Negative for guarding or rebound tenderness present Back/Spine no CVA tenderness and no thoracic nor lumbar tenderness Extremity normal to inspection General Extremety ED: Negative for edema or tenderness General Extremity: Negative for edema Neuro oriented x3 and no sensory deficits noted Sensorium / Orientation: awake and alert Skin no rashes or lesions noted and no wounds MDM MDM MDM Narrative Medical decision making narrative: Interventions / MDM: Differential diagnosis: Colitis, diverticulitis Diagnosis considered but do not suspect: Pneumoperitoneum however CT negative. My EKG interpretation: N/A Imaging independently reviewed and interpreted by myself: CT abdomen pelvis distal colonic diverticulitis. External documents reviewed: N/A Test considered but not ordered:N/A ED course: Tender left lower quadrant vital stable nontoxic. Workup initiated. Positive for uncomplicated colitis. Hemoglobin stable white count normal. Started on antibiotics with outpatient follow-up with return precautions. Re-evaluation: stable Disposition discussed with patient/family/significant other: Patient Case discussed with consulting clinician: N/A This note was generated with [employer] dictation software. It may contain incorrect words, spelling, and punctuation that were not noted in checking the note before signing. Radiography Diagnostic Testing: Clinical Impression(s) from Imaging Studies Abdomen/Pelvis CT 05/31/23 19:31 IMPRESSION: Findings consistent with distal colitis. No acute appendicitis or bowel obstruction. Status post cholecystectomy, otherwise unremarkable abdominal viscera. Electronically Signed: Shae Tamez MD at 20:02 EST , Discharge Plan Triage Chief Complaint: Abd Pain Other Complaint: GI Bleed ED Midlevel Provider: Stephon Florentino ED Provider: Vladimir Barrientos Dx/Rx/DC Orders Clinical Impression: Colitis, Abdominal pain Instructions: How the Colon Works, ED Gastritis (Adult) Prescriptions: New cefdinir 300 mg capsule 300 mg PO BID Qty: 20 0RF metronidazole 500 mg tablet 500 mg PO TID Qty: 30 0RF No Action acetaminophen 500 MG tablet 500 mg PO Q4H PRN PRN (Reason: Pain Or Fever) ibuprofen 600 MG tablet 600 mg PO 4X/DAY PRN (Reason: Pain Or Fever) Qty: 20 0RF colestipol 1 gram tablet 1 g PO BID cyclobenzaprine 10 mg tablet 10 mg PO TID PRN Patient Comments: take 0.5 to 1 tablet by mouth three times a day if needed for muscle spasm Primary Care Provider: Myles Storm Referrals: Myles Storm MD [Primary Care Provider] - Nabil Rossi DO [Med Staff - Active Staff] - Activity Restrictions/Additional Instructions: Please follow-up outpatient. Take antibiotics until finished. Disposition Disposition: Home, Self Care Discharge Date/Time: 05/31/23 21:11
== END 2023-05-31 21:11 | disposition home or self-care (01) ==
PROVIDERS: Nurse Practitioner; Emergency Provider Emergency Medicine; PCP Family Medicine; Visit Provider Emergency Medicine
DX: K52.9 Noninfective gastroenteritis and colitis, unspecified (principal); R10.30 Lower abdominal pain, unspecified
CPT/HCPCS: 74177; 80053; 82274; 83690; 85025; 96360; 99283; J7030; Q9967; A4216